=== PATIENT | male | born 1975 | race Caucasian/White ===

== ENCOUNTER 2016-07-04 16:10 | Inpatient (IN) | payer OTHER ==
--- NOTE | ~2016-07-04 | CO ---
Unit #: [id number] #: [id number] Patient: CRUZITO RICK [id number] [place] [address] [id number] MR#: [id number] NAME: CRUZITO RICK ROOM: 71 Age: 41 Sex: M Admission Date: 07/04/2016 : 1975 Attending Physician: Hossein Cameron M.D. Primary Care Physician: Wendy Gibbs A.P.R.N. Consultation Date: 07/05/2016 CONSULTATION REPORT SUBJECTIVE Cruzito is a 41-year-old who complained of bilateral knee and left calf pain at time of admission. This was outlined and discussed under his admission H and P. Please see H and P dated 07/05/2016. In the early education teacher of 07/06/2016, the patient reported to nursing staff that he continued to have a significant discomfort in both of his knees and left calf. We had planned to send him out on the morning of 07/06/2016 for venous Doppler and x-rays of his knees. Because of his continued complaints and because he was very uncomfortable, he was sent out to the emergency room for evaluation. X-rays of the knees showed bilateral effusions. Venous Doppler was negative for DVT. He was sent back to [facility]. He was given Depo-Medrol 80 mg IM x1 dose and sent to bed rest. He will need to follow up with PCP/Orthopedics at discharge. Dictated by... Dennis Sanchez/lizbeth TD: 07/07/2016 01:26 JOB #: [id number] CONSULTATION REPORT Page 1 of 1 X Lucille Simmons CONSULTATION REPORT
--- NOTE | ~2016-07-04 | PN ---
Unit #: [id number] #: [id number] Patient: CRUZITO OLIVEIRA [id number] [facility] [address] [place] [address] [id number] I MR#: [id number] NAME: CRUZITO OLIVEIRA. ROOM: P171 Age: 41 Sex: M Admission Date: 07/04/2016 : 1975 Attending Physician: Hossein Cameron M.D. Admitting Physician: Hossein Cameron M.D. Primary Care Physician: Zechariah Tenorio PROGRESS NOTES DATE OF SERVICE: 07/06/2016 DISCUSSION Mr. Oliveira went to [facility] this morning for DVT examination, which was negative. He reports ongoing extreme pain in his knees, and expresses some frustration and suicidal ideation, "if I can't get this under control." He feels that his opioid detox symptoms are minimal at this time. He appears mildly disheveled, but is nonpsychotic and irritable, but not depressed mood. ASSESSMENT Opioid dependence. PLAN We will provide tramadol as needed for pain and continue with the detox protocol. We will monitor the patient for parasuicidal behaviors. Dictated by... Hossein Cameron M.D. H/lizbeth TD: 07/06/2016 22:37 JOB #: [id number] HIEN MERCHANT NOTES Page 1 of 1 X Hossein Cameron MD X PROGRESS NOTE
--- NOTE | ~2016-07-04 | HP ---
Unit #: [id number] #: [id number] Patient: CRUZITO RICK [id number] [place] [address] [id number] I MR#: [id number] NAME: CRUZITO RICK. ROOM: 84 Age: 41 Sex: M Admission Date: 07/04/2016 : 1975 Attending Physician: Hossein Cameron M.D. Admitting Physician: Hossein Cameron M.D. Primary Care Physician: Baltazar TenorioP.RDenis HISTORY AND PHYSICAL HISTORY OF PRESENT ILLNESS Cruzito is a 41 year old, admitted to [facility] because of his drug use. He shoots heroin and meth. PAST MEDICAL HISTORY Long history of illicit substance abuse to include IV heroin and meth. PAST SURGICAL HISTORY 1. Low back x3. 2. I and D of an IV drug abscess along his right arm. 3. Bilateral knees. ALLERGIES Sulfa. SOCIAL HISTORY He smokes one pack per day and denies alcohol and admits to long history of illicit substance abuse to include IV meth and heroin. FAMILY HISTORY Medically noncontributory. REVIEW OF SYSTEMS CONSTITUTIONAL: No fever or chills. HEENT: Denies any sore throat, ear pain or runny nose. CARDIOVASCULAR: Denies chest pain, irregular heart rhythm or palpitations. CHEST: Denies shortness of breath or cough. No hemoptysis. GASTROINTESTINAL: Denies nausea, vomiting, diarrhea or chronic constipation. ENDOCRINE: Denies history of increased thirst or urination. No recent significant weight loss or gain. GENITOURINARY: Denies dysuria, frequency, or hematuria. SKIN: Denies any rashes. HEMATOLOGIC: Denies history of increased bleeding or bruising. MUSCULOSKELETAL: Denies any hot, swollen joints. No generalized muscle pain. EXTREMITIES: He reports discomfort in both of his knees and especially left calf. NEUROLOGIC: Denies problems with vision or speech. No frequent, severe headaches. No numbness, tingling or weakness in any extremities. Denies loss of bladder or bowel control. CURRENT MEDICATIONS Unit #: [id number] #: [id number] Patient: CRUZITO RICK 1. Detox protocol 2. Motrin 600 mg q.6h p.r.n. PHYSICAL EXAMINATION GENERAL: Alert, well-nourished, no apparent distress. VITAL SIGNS: Blood pressure 148/92, heart rate 80, respirations 16, and temperature 98.6. WEIGHT: 200 pounds. HEIGHT: 6 feet 4 inches. SKIN: Warm and dry without rash or lesion. HEENT: Normocephalic. TMs not viewed. Oral and nasal passages clear. Conjunctivae clear. PERRLA. EOMs intact. NECK: Supple without lymphadenopathy or thyromegaly. HEART: Regular rate and rhythm without murmur. LUNGS: Clear. ABDOMEN: Soft, nontender. : Not done. EXTREMITIES: No evidence of cyanosis or clubbing. He does have swelling and significant tenderness in his left calf with plus/minus Lynne's. NEUROLOGICAL: Unable to complete extended exam. He does move all extremities without focal deficit although he complains of pain in both knees. He is not weight-bearing. IMPRESSION 1. Long history of illicit substance abuse to include IV drugs. 2. Significant pain with swelling in his left calf. RECOMMENDATIONS Psychiatric, per psychiatrist. MEDICAL 1. I see no contraindications to participating in facility's activities. 2. Detox per protocol. 3. Venous Doppler, left lower extremity in a.m. 4. The patient is remain in bed. 5. Levaquin 500 mg one p.o. daily x7 days, first dose now. Dictated by... Lucille Simmons PPamelaAPamela-Mainor. for Jennifer Hayes/judy TD: 07/06/2016 07:28 JOB #: [id number] Unit #: [id number] #: [id number] Patient: CRUZITO RICK HISTORY AND PHYSICAL Page 1 of 1 X Lucille Simmons HISTORY AND PHYSICAL
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
--- NOTE | ~2016-07-04 | PN ---
Unit #: [id number] #: [id number] Patient: CRUZITO RICK [id number] [facility] [address] [place] [address] [id number] I MR#: [id number] NAME: CRUZITO RICK. ROOM: P171 Age: 41 Sex: M Admission Date: 07/04/2016 : 1975 Attending Physician: Hossein Cameron M.D. Admitting Physician: Hossein Cameron M.D. Primary Care Physician: Zechariah Tenorio PROGRESS NOTES DATE OF SERVICE 07/08/2016 DISCUSSION Cruzito continues to complain of active detox symptoms today including cramping, sweating, and nausea. He also reports that he is much more sensitive to pain in his knees which I explained was probably an effect of the detox itself. He does state his wishes to be more ambulatory and is stretching and exercising when he can. His mood is irritable with a flat affect. He is alert and fully oriented with no active psychosis and no SI today. ASSESSMENT Opiate dependence. PLAN Continue current treatment plan and precautions. Dictated by... Hossein Cameron M.D. MRH/bzg TD: 07/08/2016 11:49 JOB #: [id number] HIEN PROGRESS NOTES Page 1 of 1 X Hossein Cameron MD PROGRESS NOTE
--- NOTE | ~2016-07-04 | PN ---
Unit #: [id number] #: [id number] Patient: CRUZITO RICK [id number] [facility] [address] [place] [address] [id number] I MR#: [id number] NAME: CRUZITO RIKC. ROOM: P171 Age: 41 Sex: M Admission Date: 07/04/2016 : 1975 Attending Physician: Hossein Cameron M.D. Admitting Physician: Hossein Cameron M.D. Primary Care Physician: Zechariah Tenorio PROGRESS NOTES DATE 07/07/2016 DISCUSSION Cruzito has mild improvement in his pain control; however, he continues to have active detox symptoms including cramping, nausea, sweating, and physical discomfort. He is trying to ambulate more but says that his knees are extremely sore and this makes it very difficult to do. He is irritable in his mood with a congruent affect. He is alert and fully oriented with no evidence of psychosis and denies SI today. ASSESSMENT Opiate dependence. PLAN Continue detox protocol and provide larger portion entrees for nutritional support. Dictated by... Jennifer Pruitt/judy TD: 07/08/2016 12:10 JOB #: [id number] HIEN PROGRESS NOTES Page 1 of 1 X Hossein Cameron MD PROGRESS NOTE
[~2016-07-04 16:10] MED LIST: ADVIL200 M1 PO; AUGMENTIN875 M1 PO; NEURONTIN300 MG PO; NO MEDICATIONS; PRILOSEC PO; PROZAC PO
[2016-07-05 09:48] LABS: BASOPHIL% 0.3 % (0-2.5); EOSINOPHIL% 0.2 % (0.0-7.0); HEMATOCRIT 41.9 % (38.0-50.0); HEMOGLOBIN 14.5 gm/dL (13.0-16.0); LYMPHOCYTE# 2.6 X10e3 (1.0-3.5); LYMPHOCYTE% 20.3 % (17.0-45.0); MEAN CELL VOLUME 86.7 FL (83-96); MEAN CORPUSCULAR HGB CONC 34.6 g/dL (30-36); MEAN PLATELET VOLUME 7.7 FL (6.5-11.5); MONOCYTE# 1.2 X10e3 (0-1.0); MONOCYTE% 9.3 % (3.0-12.0); NEUTROPHIL# 8.9 X10e3 (1.5-7.1); NEUTROPHIL% 69.9 % (40-75); PLATELET COUNT 328 X10e3 (140-420); RED BLOOD COUNT 4.83 X10e (3.90-5.60); RED CELL DISTRIBUTION WIDTH 12.8 % (11.0-15.5); WHITE BLOOD COUNT 12.7 X10e3 (4.0-10.5)
[2016-07-05 09:55] LABS: URINE APPEARANCE CLEAR; URINE BILIRUBIN NEG (NEG); URINE BLOOD NEG (NEG); URINE COLOR DK YELLOW; URINE GLUCOSE NEG (NEG); URINE KETONE NEG (NEG); URINE LEUKOCYTE ESTERASE 2+ (NEG); URINE NITRATE NEG (NEG); URINE PH 6.5 (5-8); URINE PROTEIN NEG (NEG); URINE SPECIFIC GRAVITY 1.016 (1.003-1.035)
[2016-07-05 09:56] LABS: DIFF IND NO
[2016-07-05 09:59] LABS: URBCS1 AUWI 0-2 /[HPF] (0-2); URINE BACTERIA AUWI NEG (NEGATIVE); URINE SQUAMOUS EPITHELIAL CELL OCC /[HPF]
[2016-07-05 10:01] LABS: ALBUMIN SERUM 3.4 g/dL (3.5-5.0); BILIRUBIN,TOTAL 1.9 mg/dL (0.2-2.0); BUN/CREATININE RATIO 21.42; CALCIUM SERUM 9.1 mg/dL (8.4-10.2); CREATININE SERUM 0.7 mg/dL (0.6-1.4); GLOM FILT RATE Estimated 118.1 mL/min (>60); PROTEIN TOTAL SERUM 6.3 g/dL (6.0-8.3)
[2016-07-05 10:32] LABS: AMPHETAMINE NEG (NEG); BARBITURATES NEG (NEG); BENZODIAZEPINES NEG (NEG); COCAINE NEG (NEG); MARIJUANA NEG (NEG); OPIATES NEG (NEG); TRICYCLIC ANTIDEPRESSANTS POS (NEG); U METHADONE NEG (NEG)
[2016-07-07 07:44] LABS: HA AB IGM (HEPPAN) Nonreactive (()); HB CORE AB IGM (HEPPAN) Nonreactive (Nonreactive); HB S AG (HEPPAN) Nonreactive (Nonreactive); HEP C AB (HEPPAN) Nonreactive (Nonreactive); HEP C AB SIGNAL TO CUTOFF 0.04 ratio (<1.00)
== END 2016-07-08 16:15 | disposition left against medical advice (07) | DRG 894 ==
LOC: P1E 16:10
PROVIDERS: Psychiatry & Neurology Psychiatry
PROC: HZ2ZZZZ Detoxification Services for Substance Abuse Treatment (ICD-10-PCS; principal; 2016-07-04)
DX: F11.23 Opioid dependence with withdrawal (principal); R45.851 Suicidal ideations; Z59.0 Homelessness; Z62.819 Personal history of unspecified abuse in childhood; G89.29 Other chronic pain; M25.569 Pain in unspecified knee; F15.10 Other stimulant abuse, uncomplicated; F17.210 Nicotine dependence, cigarettes, uncomplicated; M25.462 Effusion, left knee; M25.461 Effusion, right knee
CPT/HCPCS: 80053; 80074; 80307; 81003; 85025; 86592; 87806; J1040

== ENCOUNTER 2016-07-06 04:16 | Emergency (ER) | payer OTHER ==
--- NOTE | ~2016-07-06 | CR168 ---
[facility]. [facility] A Service of [facility] RADIOLOGY TEXT RESULTS PATIENT: CRUZITO OLIVEIRA LOCATION: [facility] : [birth year] UNIT #: [id number] AGE: [address]: Deacon Arreguin MD SEX: M ORDER DR: [id number] [facility] [address] [place], [place] [address] [id number] MR#: [id number] Acc #: [id number] NAME: CRUZITO OLIVEIRA : 1975 SEX: M STUDY DATE/TIME: 07/06/2016 4:28 UNIT: [facility] ROOM: STUDY DESCRIPTION: CR Knee 2 Views Romie Attending Physician: Deacon Arreguin M.D. Ordering Physician: Cyn Oliveira M.D. Primary Care Physician: Wendy Gibbs A.P.R.N. MEDICAL IMAGING REPORT This report is preliminary unless electronic signature is present EXAM Bilateral knee series. HISTORY Pain and swelling for five days. FINDINGS AP and cross table lateral views of both knees were obtained. There are large joint effusions present bilaterally. The bones are normal. There is no fat fluid level visible. IMPRESSION Large bilateral knee effusions are present, otherwise study is normal. Dictated by... Shemar Burns M.D. THIS IS AN ELECTRONICALLY VERIFIED REPORT Shemar Burns M.D. at 07/06/2016 2:21 PM DEVANTE/jessica TD: 07/06/2016 06:39 JOB #: [id number] MEDICAL IMAGING REPORT Page 1 of 1 COPY
--- NOTE | ~2016-07-06 | US84 ---
[id number] [facility] [address] [place] [address]. [place], [place] [address] [id number] MR#: [id number] Acc #: [id number] NAME: CRUZITO RICK : 1975 SEX: M STUDY DATE/TIME: 07/06/2016 8:16 UNIT: NEPTALI ROOM: STUDY DESCRIPTION: US LE Veins Complete Romie Stdy Attending Physician: Deacon Lares M.D. Ordering Physician: Deacon Lares M.D. Primary Care Physician: Wendy Gibbs A.P.R.N. MEDICAL IMAGING REPORT This report is preliminary unless electronic signature is present EXAM Bilateral lower extremity venous ultrasound HISTORY Bilateral leg pain and swelling for 5 days. TECHNIQUE Venous ultrasound examination of both lower extremities was performed using grayscale, spectral Doppler and color flow Doppler imaging. FINDINGS The examination is negative. There is no evidence of deep venous thrombus from the groin to the lower calf bilaterally. Visualized greater saphenous veins are also patent. IMPRESSION Negative examination. No evidence of lower extremity deep venous thrombosis. Dictated by... Deepak Dey M.D. THIS IS AN ELECTRONICALLY VERIFIED REPORT Deepak Dey M.D. at 07/11/2016 6:37 PM JOSEF/mira TD: 07/06/2016 10:00 JOB #: [id number] MEDICAL IMAGING REPORT Page 1 of 1 COPY
[2016-07-06 05:16] LABS: BASOPHIL% 0.4 % (0-2.5); EOSINOPHIL# 0.1 X10e3 (0-0.7); EOSINOPHIL% 1.3 % (0.0-7.0); HEMATOCRIT 40.1 % (38.0-50.0); HEMOGLOBIN 13.4 gm/dL (13.0-16.0); LYMPHOCYTE# 3.1 X10e3 (1.0-3.5); LYMPHOCYTE% 25.8 % (17.0-45.0); MEAN CELL VOLUME 89.1 FL (83-96); MEAN CORPUSCULAR HEMOGLOBIN 29.6 PG (28-34); MEAN CORPUSCULAR HGB CONC 33.3 g/dL (30-36); MEAN PLATELET VOLUME 7.3 FL (6.5-11.5); MONOCYTE# 1.2 X10e3 (0-1.0); MONOCYTE% 9.9 % (3.0-12.0); NEUTROPHIL# 7.5 X10e3 (1.5-7.1); NEUTROPHIL% 62.6 % (40-75); PLATELET COUNT 323 X10e3 (140-420); RED BLOOD COUNT 4.51 X10e (3.90-5.60); WHITE BLOOD COUNT 11.9 X10e3 (4.0-10.5)
[2016-07-06 05:21] LABS: DIFF IND NO
[2016-07-06 05:48] LABS: BUN/CREATININE RATIO 22.5; CALCIUM SERUM 8.8 mg/dL (8.4-10.2); CREATININE SERUM 0.8 mg/dL (0.6-1.4); GLOM FILT RATE Estimated 111.8 mL/min (>60)
== END 2016-07-06 10:30 | disposition home or self-care (01) ==
LOC: CED 04:16
PROVIDERS: Emergency Medicine
DX: M25.461 Effusion, right knee (principal); M25.462 Effusion, left knee; F19.10 Other psychoactive substance abuse, uncomplicated; F17.210 Nicotine dependence, cigarettes, uncomplicated; Z88.2 Allergy status to sulfonamides; Z88.8 Allergy status to other drugs, medicaments and biological substances
CPT/HCPCS: 36415; 73560; 80048; 85025; 85652; 87040; 93970; 96374; 96375; 99284; J1885; J2930